=== PATIENT | male | born 1980 | race Caucasian/White ===

== ENCOUNTER 2018-02-14 15:57 | Emergency (ER) | payer OTHER ==
[~2018-02-14] VITALS: Ht 170.2 cm; Wt 57.0 kg
[2018-02-14 16:01] VITALS: BP 125/81
[2018-02-14] MEDS ORDERED: LORazepam 1MG TABLET PO ONE (16:30)
[2018-02-14 16:58] LABS: BASOPHILS # (AUTO) 0.02 x10^3/uL (0-0.1); BASOPHILS % (AUTO) 0 % (0-1); EOSINOPHILS % (AUTO) 0 % (1-7); LYMPHOCYTES % (AUTO) 16 % (22-44); MD NO; MEAN CORPUSCULAR HEMOGLOBIN 32.1 pg (27.5-34.5); MEAN CORPUSCULAR HGB CONC 34.3 g/dL (33.2-36.2); MEAN CORPUSCULAR VOLUME 93.8 fL (81-97); MEAN PLATELET VOLUME 9.1 fL (7.4-10.4); MONOCYTES # (AUTO) 0.59 x10^3/uL (0.2-0.8); MONOCYTES % (AUTO) 7 % (2-9); NEUTROPHILS # (AUTO) 6.66 x10^3/uL (1.8-6.8); NEUTROPHILS % (AUTO) 77 % (42-75); PLATELET COUNT 240 x10^3/uL (130-400); RED BLOOD COUNT 5.01 x10^6/uL (4.38-5.82); RED CELL DISTRIBUTION WIDTH 13.1 % (9.4-14.8)
[2018-02-14 17:17] LABS: ALANINE AMINOTRANSFERASE 32 U/L (12-78); ALBUMIN 3.9 g/dL (3.4-5.0); ANION GAP 10 mmol/L (5-15); CALCIUM 9.2 mg/dL (8.5-10.1); CHLORIDE 108 mmol/L (98-107); CREATININE 1.27 mg/dL (0.7-1.3)
[2018-02-14 17:19] LABS: ALKALINE PHOSPHATASE 106 U/L (45-117); BILIRUBIN,TOTAL 0.5 mg/dL (0.2-1.0); TOTAL PROTEIN 7.3 g/dL (6.4-8.2)
== END 2018-02-14 22:36 | disposition left against medical advice (07) ==
LOC: ED 18:07
DX: F15.10 Other stimulant abuse, uncomplicated (principal); R00.2 Palpitations
CPT/HCPCS: 36415; 80053; 85025; 93005; 99285